=== PATIENT | female | born 1985 ===

== ENCOUNTER 2017-03-06 14:24 | Emergency (ER) | payer BC ==
[2017-03-06 14:48] VITALS: BP 125/73; PULSE 72; RESP 16; TEMP 98.7
[2017-03-06] MEDS ORDERED: TDAP Vaccine 0.5 mL Syr IM ONE (15:09)
--- NOTE | 2017-03-06 15:10 | ED PDOC ---
Arrival/HPI - General Chief Complaint: Abnormal Skin Integrity Time Seen by Provider: 03/06/17 15:09 Historian: Patient - History of Present Illness Narrative History of Present Illness (Text): 03/06/17 15:10 This 31 yo female presents to this ED c/o left middle finger laceration x COLLABORATIVE PHYSICIAN. Patient stated she cut finger with broken glass at her sink. Finger has FROM. Last tetanus is UKN. Patient is right hand dominant. Denies other complain. Time/Duration: Prior to Arrival Context: Home Past Medical History - Provider Review Nursing Documentation Reviewed: Yes - Psychiatric Hx Psychophysiologic Disorder: No Hx Substance Use: No - Surgical History Other/Comment: GASTRIC SLEEVE Family/Social History - Physician Review Nursing Documentation Reviewed: Yes Family/Social History: No Known Family HX Smoking Status: Never Smoked Hx Alcohol Use: No Hx Substance Use: No Allergies/Home Meds Allergies/Adverse Reactions: Allergies No Known Allergies Allergy (Verified 03/06/17 14:42) Home Medications: Home Meds Medication Instructions Recorded Confirmed Ferrous Sulfate [Ferosul] 1 tab PO DAILY 03/06/17 03/06/17 Review of Systems - Review of Systems Constitutional: Normal. absent: Fatigue, Weight Change, Fevers Eyes: Normal ENT: Normal Respiratory: Normal Cardiovascular: Normal Gastrointestinal: Normal Genitourinary Female: Normal Musculoskeletal: Other (Finger laceration) Skin: Normal Neurological: Normal Endocrine: Normal Hemo/Lymphatic: Normal Psychiatric: Normal Physical Exam Vital Signs Temp Pulse Resp BP Pulse Ox 03/06/17 16:31 16 98 03/06/17 14:47 98.7 F 72 16 125/73 97 Temperature: Afebrile Blood Pressure: Normal Pulse: Regular Respiratory Rate: Normal Appearance: Positive for: Well-Appearing, Non-Toxic, Comfortable Pain Distress: None Mental Status: Positive for: Alert and Oriented X 3 - Systems Exam Head: Present: Atraumatic, Normocephalic Pupils: Present: PERRL Extroacular Muscles: Present: EOMI Conjunctiva: Present: Normal Mouth: Present: Moist Mucous Membranes Upper Extremity: Present: Normal ROM, NORMAL PULSES, Capillary Refill < 2s, Other ((+) left mid 3rdfinger laceration No deep structure visualized. Finger has FROM). No: Cyanosis, Edema Lower Extremity: Present: Normal Inspection. No: Edema, CALF TENDERNESS Medical Decision Making ED Course and Treatment: 03/06/17 16:12 Re-evaluation. Patient feels better. Discussed results and plan with patient who expresses understanding. All questions answered and there is agreement with the plan to discharge home with instructions. Patient stable for discharge. Return if symptoms persist or worsen Re-evaluation Time: 16:12 Reassessment Condition: Re-examined, Improved - Medication Orders Current Medication Orders: Discontinued Medications Tetanus/Reduced Diphtheria/Acell Pertussis (Boostrix Vaccine Inj) 0.5 ml IM .ONCE ONE Stop: 03/06/17 15:10 Last Admin: 03/06/17 15:59 Dose: 0.5 ml - Procedure PROCEDURE NOTE (Text): 03/06/17 16:13 PROCEDURE: LACERATION REPAIR Performed by the emergency provider Location: left middle finger Length: 2.7 cm Description: clean wound edges , no foreign bodies Distal CMS: Normal. No deficits. Neurovascularly intact. Anesthesia: Lidocaine 1% with Epi, approx. 1 cc Preparation: The wound was cleaned with NS and Betadyne. The area was prepped and draped in the usual sterile fashion. Exploration: The wound was explored and no foreign bodies were found. Procedure: The wound was closed with Chromic Gut, 5-0. interrupted. There was good approximation. In total, 3 sutures were used. Post-Procedure: Good closure and hemostasis. The patient tolerated the procedure well and there were no complications. CSM remains intact. Post procedure dressing applied Disposition/Present on Arrival - Present on Arrival Any Indicators Present on Arrival: No History of DVT/PE: No History of Uncontrolled Diabetes: No Urinary Catheter: No History of Decub. Ulcer: No History Surgical Site Infection Following: None - Disposition Have Diagnosis and Disposition been Completed?: Yes Diagnosis: Finger laceration Disposition: HOME/ ROUTINE Disposition Time: 16:15 Patient Plan: Discharge Condition: IMPROVED Discharge Instructions (ExitCare): Finger Laceration (ED) Additional Instructions: Call private doctor for follow up visit in 1-2 days. Take medication as instructed. Return to emergency if wound becomes painful, redness, drainage. Sutures are absorbable , so they do not need to be removed. They will fall off by themselves Prescriptions: Cephalexin [cephalexin] 500 mg PO TID #15 cap Referrals: PCP,NO [Primary Care Provider] - Follow up with primary Brad MARQUEZ,Paulino Nettles MD [Medical Doctor] - Follow up with primary Forms: WORK NOTE
[2017-03-06 16:32] VITALS: O2SAT 98
== END 2017-03-06 16:32 | disposition home or self-care (01) ==
LOC: ED 14:24
DX: S61.213A Laceration without foreign body of left middle finger without damage to nail, initial encounter (principal); W25.XXXA Contact with sharp glass, initial encounter; Y92.009 Unspecified place in unspecified non-institutional (private) residence as the place of occurrence of the external cause

== ENCOUNTER 2018-06-17 08:39 | Inpatient (IN) | payer BC ==
[2018-06-17] MEDS ORDERED: Sodium Chloride 0.9% 1,000 ML IV STA (09:08)
--- NOTE | 2018-06-17 09:08 | ED PDOC ---
Arrival/HPI - General Chief Complaint: Abdominal Pain Time Seen by Provider: 06/17/18 08:40 Historian: Patient - History of Present Illness Narrative History of Present Illness (Text): 06/17/18 09:08 33 year old female, whose past medical history includes sleeve gastrectomy 2013 , presents to the emergency department complaining of sudden onset of right lower abdominal pain that began yesterday morning. Patient reports she had breakfast yesterday morning with one episode of diarrhea when the symptoms began. Pain has been constant. She states the pain has progressively worsen throughout the night and is unable to eat due to the pain. Patient's last menstrual period was in the end of April. Patient reports nausea and vomiting, but denies any fever, chills, chest pain, shortness of breath, diarrhea currently, urinary symptoms, hematochezia, back pain, neck pain, headache, dizziness, or any other complaints. 06/17/18 15:09 Symptom Onset: Sudden Symptom Course: Worsening Activities at Onset: Light Context: Home Past Medical History - Provider Review Nursing Documentation Reviewed: Yes - Psychiatric Hx Psychophysiologic Disorder: No Hx Substance Use: No - Surgical History Other/Comment: GASTRIC SLEEVE Family/Social History - Physician Review Nursing Documentation Reviewed: Yes Family/Social History: No Known Family HX Smoking Status: Never Smoked Hx Alcohol Use: No Hx Substance Use: No Allergies/Home Meds Allergies/Adverse Reactions: Allergies No Known Allergies Allergy (Verified 06/17/18 08:55) Home Medications: Home Meds Medication Instructions Recorded Confirmed No Known Home Med 06/17/18 06/17/18 Review of Systems - Review of Systems Constitutional: absent: Fatigue, Fevers, Other (Chills) Eyes: absent: Vision Changes ENT: absent: Hearing Changes Respiratory: absent: SOB Cardiovascular: absent: Chest Pain, Edema Gastrointestinal: Abdominal Pain, Nausea, Vomiting, Appetite Changes. absent: Diarrhea, Hematochezia, Hematemesis Genitourinary Female: absent: Dysuria, Frequency, Hematuria, Urine Output Changes Musculoskeletal: absent: Back Pain, Neck Pain Neurological: absent: Headache, Dizziness Endocrine: absent: Polyuria Hemo/Lymphatic: absent: Easy Bleeding Physical Exam - Physical Exam Narrative Physical Exam (Text): Head: Atraumatic. Normocephalic. Eyes: PERRL. EOMI. Conjunctivae are not pale. Sclera anicteric. ENT: Mucous membranes are moist and intact. Oropharynx is clear and symmetric. Neck: Supple. Full ROM. No JVD. No lymphadenopathy. Cardiovascular: Regular rate. Regular rhythm. No murmurs, rubs, or gallops. Distal pulses are 2+ and symmetric. Pulmonary/Chest: No evidence of respiratory distress. Clear to auscultation bilaterally. No wheezing, rales or rhonchi. Abdominal: Soft and non-distended. Focal tenderness to right lower quadrant with rebound and guarding. Mild pain to right upper quadrant but no Phillips's sign. Back: No CVA tenderness. Extremities: No edema. No cyanosis. No clubbing. Full range of motion in all extremities. No calf tenderness. Skin: Skin is warm and dry. No petechiae. No purpura. No jaundice. Neurological: Alert, awake, and oriented. Motor and sensory exam intact. Psychiatric: Good eye contact. Normal interaction, affect, and behavior. Vital Signs Reviewed: Yes Vital Signs Temp Pulse Resp BP Pulse Ox 06/17/18 11:08 72 18 124/77 98 06/17/18 10:18 71 18 123/68 98 06/17/18 08:53 98.8 F 86 18 125/73 97 Temperature: Afebrile Blood Pressure: Normal Pulse: Regular Respiratory Rate: Normal Appearance: Positive for: Well-Appearing, Non-Toxic, Uncomfortable Pain Distress: Moderate Mental Status: Positive for: Alert and Oriented X 3 Medical Decision Making ED Course and Treatment: 06/17/18 09:08 Impression: 33 year old female presents complaining of sudden onset of right lower abdominal pain associated with nausea and vomiting that began yesterday morning after having breakfast and one episode of diarrhea Differential Diagnosis included but are not limited to: Appendicitis VS Cholecystitis VS Bowel Obstruction VS Ovarian Cyst Plan: -- CT Abd & Pelvis IV Contrast -- Labs -- Pepcid, IV Fluids -- POC Urine Test -- HCG, Qualit Urine, Urinalysis -- Reassess and disposition Progress Notes: Patient with constant worsening pain which on exam is localized to right lower quadrant. Afebile. Vital signs stable on initial exams. Denies chest pain or sob. Leukocytosis noted. CT ordered to evaluate for possible appendicitis. PROCEDURE: CT Abdomen and Pelvis with contrast Dictator : Sterling Pandey MD Report Date : 06/17/2018 10:14:37 IMPRESSION: The appendix is dilated to a diameter 14 mm. There is thickening and enhancement of the wall of the appendix and minimal surrounding inflammatory changes. Findings are consistent with acute appendicitis Patient informed of CT findings. On re-exam she has persistent, unchanged lower abdominal pain. Surgery convention worker consulted, Dr. Shaw, who accepts admission to his service. Surgery team consulted. Patient will be admitted for acute appendicitis. 06/17/18 15:12 - Lab Interpretations Lab Results: 06/17/18 09:00 06/17/18 09:00 Lab Results 06/17/18 09:00: Sodium 139, Potassium 4.3, Chloride 102, Carbon Dioxide 27, Anion Gap 15, BUN 12, Creatinine 0.6 L, Est GFR ( Amer) > 60, Est GFR ( Non-Af Amer) > 60, Random Glucose 123 H, Calcium 9.3, Total Bilirubin 0.9, AST 23, ALT 25, Alkaline Phosphatase 62, Total Protein 8.2, Albumin 4.4, Globulin 3.8, Albumin/Globulin Ratio 1.2, Amylase 77, Lipase 34 06/17/18 09:00: Urine Color Yellow, Urine Appearance Clear, Urine pH 6.0, Ur Specific [place] 1.025, Urine Protein Trace H, Urine Glucose (UA) Negative, Urine Ketones Negative, Urine Blood Negative, Urine Nitrate Negative, Urine Bilirubin Negative, Urine Urobilinogen 2.0 H, Ur Leukocyte Esterase Negative, Urine RBC 0 - 2, Urine WBC 1 - 3, Ur Epithelial Cells 4 - 5, Urine Bacteria Many , Urine Other Uyeast, Urine HCG, Qual Negative 06/17/18 09:00: WBC 14.4 H, RBC 4.69, Hgb 12.7, Hct 38.5, MCV 82.1, MCH 27.1, MCHC 33.0, RDW 13.2, Plt Count 269, MPV 10.6, Gran % 81.0 H, Lymph % (Auto) 9.5 L, [place] % (Auto) 9.3 H, Eos % (Auto) 0.1 L, Baso % (Auto) 0.1, Gran # 11.63 H, Lymph # (Auto) 1.4, [place] # (Auto) 1.3 H, Eos # (Auto) 0.0, Baso # (Auto) 0.02 I have reviewed the lab results: Yes - RAD Interpretation Radiology Orders: 06/17/18 09:08 ABD & PELVIS IV CONTRAST ONLY [CT] Stat - Medication Orders Current Medication Orders: Hydromorphone HCl (Dilaudid) 0.5 mg IVP Q6H PRN PRN Reason: Pain, moderate (4-7) Discontinued Medications Famotidine (Pepcid) 20 mg IVP STAT STA Stop: 06/17/18 09:09 Last Admin: 06/17/18 09:22 Dose: 20 mg IVP Administration Document 06/17/18 09:22 EAR (Rec: 06/17/18 09:22 EAR [id number]) Charges for Administration # of IVP Administrations 1 Sodium Chloride (Sodium Chloride 0.9%) 1,000 mls @ 1,000 mls/hr IV .Q1H STA Stop: 06/17/18 10:07 Last Admin: 06/17/18 09:23 Dose: 1,000 mls/hr eMAR Start Stop Document 06/17/18 09:23 EAR (Rec: 06/17/18 09:23 EAR [id number]) Intravenous Solution Start Date 06/17/18 Start Time 09:23 End Date 06/17/18 End time 10:25 Total Infusion Time 62 Ceftriaxone Sodium (Rocephin 1 Gram Ivpb) 1 gm in 100 mls @ 200 mls/hr IVPB ONCE STA PRN Reason: Protocol Stop: 06/17/18 10:51 Last Admin: 06/17/18 10:31 Dose: 200 mls/hr eMAR Start Stop Document 06/17/18 10:31 EAR (Rec: 06/17/18 10:31 EAR [id number]) Intravenous Solution Start Date 06/17/18 Start Time 10:31 End Date 06/17/18 End time 11:05 Total Infusion Time 34 Metronidazole (Flagyl) 500 mg in 100 mls @ 100 mls/hr IV ONCE ONE PRN Reason: Protocol Stop: 06/17/18 11:22 Last Admin: 06/17/18 10:59 Dose: 100 mls/hr eMAR Start Stop Document 06/17/18 10:59 EAR (Rec: 06/17/18 11:00 EAR [id number]) Intravenous Solution Start Date 06/17/18 Start Time 11:00 End Date 06/17/18 End time 12:00 Total Infusion Time 60 Morphine Sulfate (Morphine) 2 mg IVP STAT STA Stop: 06/17/18 10:33 Last Admin: 06/17/18 10:59 Dose: 2 mg MAR Pain Assessment Document 06/17/18 10:59 EAR (Rec: 06/17/18 10:59 EAR [id number]) Pain Reassessment Is this a pain reassessment? No Sleep Is patient sleeping during reassessment? No Presence of Pain Presence of Pain Yes Pain Scale Used Pain Scale Used Numeric Location Left, Right or Bilateral Right Pain Location Body Site Groin IVP Administration Document 06/17/18 10:59 EAR (Rec: 06/17/18 10:59 EAR [id number]) Charges for Administration # of IVP Administrations 1 Pneumococcal Polyvalent Vaccine (Pneumovax 23 Vaccine) 0.5 ml IM .ONCE ONE Stop: 06/17/18 12:17 - Scribe Statement The provider has reviewed the documentation as recorded by the Sasha Rose Provider Scribe Attestation: All medical record entries made by the Sasha were at my direction and personally dictated by me. I have reviewed the chart and agree that the record accurately reflects my personal performance of the history, physical exam, medical decision making, and the department course for this patient. I have also personally directed, reviewed, and agree with the discharge instructions and disposition. Disposition/Present on Arrival - Present on Arrival Any Indicators Present on Arrival: No History of DVT/PE: No History of Uncontrolled Diabetes: No Urinary Catheter: No History of Decub. Ulcer: No History Surgical Site Infection Following: None - Disposition Have Diagnosis and Disposition been Completed?: Yes Diagnosis: Appendicitis Disposition: HOSPITALIZED Disposition Time: 11:00 Patient Plan: Admission Condition: SERIOUS
[2018-06-17 09:19] LABS: BASO # 0.02 K/mm3 (0.0-2.0); BASO % 0.1 % (0.0-3.0); EOS % 0.1 % (1.5-5.0); GRAN # 11.63 (1.4-6.5); HEMOGLOBIN 12.7 g/dL (12.0-16.0); LYMPH # 1.4 (1.2-3.4); LYMPH % 9.5 % (22.0-35.0); MEAN CELL VOLUME 82.1 fl (80.0-105.0); MEAN CORPUSCULAR HEMOGLOBIN 27.1 pg (25.0-35.0); MEAN PLATELET VOLUME 10.6 fl (7.0-11.0); MONO # 1.3 (0.1-0.6); MONO % 9.3 % (1.0-6.0); RBC 4.69 10^6/uL (3.5-6.1); RED CELL DISTRIBUTION WIDTH 13.2 % (11.5-14.5); WHITE BLOOD COUNT 14.4 10^3/ul (4.5-11.0)
[2018-06-17 09:20] LABS: URINE BILIRUBIN NEGATIVE (NEGATIVE); URINE BLOOD NEGATIVE (NEGATIVE); URINE GLUCOSE (UA) NEGATIVE (NEGATIVE); URINE LEUKOCYTE ESTERASE NEGATIVE Leu/uL (NEGATIVE); URINE PROTEIN TRACE mg/dL (<30 mg/dL)
[2018-06-17 09:22] LABS: URINE COLOR YELLOW (YELLOW)
[2018-06-17 09:23] LABS: URINE APPEARANCE CLEAR (CLEAR)
[2018-06-17 09:28] LABS: HCG,QUALITATIVE URINE NEGATIVE (NEGATIVE)
[2018-06-17 09:30] LABS: ALB/GLOB RATIO 1.2 (1.1-1.8); ALBUMIN 4.4 g/dL (3.0-4.8); ALT/SGPT 25 U/L (7-56); AMYLASE 77 U/L (35-125); AST/SGOT 23 U/L (14-36); BLOOD UREA NITROGEN 12 mg/dL (7-21); CALCIUM 9.3 mg/dL (8.4-10.5); GFR NON-AFRICAN AMERICAN > 60; LIPASE 34 U/L (23-300)
[2018-06-17 09:31] LABS: URINE BACTERIA MANY (NEG); URINE RBC 0 - 2 /hpf (0-2)
[2018-06-17] MEDS ORDERED: Iohexol 350 MG/100 ML VIAL ONE (09:44)
--- NOTE | 2018-06-17 10:16 | CT ---
Date of service: 06/17/2018 PROCEDURE: CT Abdomen and Pelvis with contrast HISTORY: rlq abdominal pain, r/o appendicitis COMPARISON: None. TECHNIQUE: Contrast dose: 100 cc of Omni 350 Radiation dose: Total exam DLP = 1033 mGy-cm. This CT exam was performed using one or more of the following dose reduction techniques: Automated exposure control, adjustment of the mA and/or kV according to patient size, and/or use of iterative reconstruction technique. FINDINGS: LOWER THORAX: Unremarkable. LIVER: Unremarkable. No gross lesion or ductal dilatation. GALLBLADDER AND BILE DUCTS: Unremarkable. PANCREAS: Unremarkable. No gross lesion or ductal dilatation. SPLEEN: Unremarkable. ADRENALS: Unremarkable. No mass. KIDNEYS AND URETERS: Unremarkable. No hydronephrosis. No solid mass. VASCULATURE: Unremarkable. No aortic aneurysm. BOWEL: Unremarkable. No obstruction. No gross mural thickening. APPENDIX: The appendix is dilated to a diameter 14 mm. There is thickening and enhancement of the wall of the appendix and minimal surrounding inflammatory changes. Findings are consistent with acute appendicitis PERITONEUM: Unremarkable. No free fluid. No free air. LYMPH NODES: Unremarkable. No enlarged lymph nodes. BLADDER: Unremarkable. REPRODUCTIVE: Unremarkable. BONES: No acute fracture. OTHER FINDINGS: Findings were discussed with Dr. Martines at 10:10 a.m. IMPRESSION: The appendix is dilated to a diameter 14 mm. There is thickening and enhancement of the wall of the appendix and minimal surrounding inflammatory changes. Findings are consistent with acute appendicitis
[2018-06-17] MEDS ORDERED: cefTRIAXone 1 gm 1 GM/100 ML BAG IVPB STA (10:22)
[2018-06-17] MEDS ORDERED: metroNIDAZOLE IV 500 mg/100 ml 500 MG/100 ML BAG IV ONE (10:23)
[2018-06-17] MEDS ORDERED: Morphine 2 mg/ml ISec IVP STA (10:32)
--- NOTE | 2018-06-17 11:33 | CP.PCM.HP ---
<Adryan Stokes - Last Filed: 06/17/18 11:48> History of Present Illness - History of Present Illness History of Present Illness: H&P for Dr. Shaw 33 yo F presents to the ED with 1 day hx of abdominal pain. The pt states that she noticed mild, generalized abdominal pain after breakfast yesterday morning. The pain steadily worsened throughout the day, become more sharp and localized to her RLQ. She took pepto bismol and ibuprofen yesterday for pain without relief. She was unable to sleep comfortably on her stomach. Pain was accompanied by fever (101F, oral), chills, vomiting x1 last night, and loss of appetite. She has not eaten since breakfast yesterday. She has never experienced anything like this before. She had a normal bowel movement yesterday morning. She denies any headache, lightheadedness, weakness, vision changes, cough, dyspnea, chest pain, sore throat, difficulty swallowing, diarrhea, constipation, vaginal bleeding, dysuria, urinary frequency. Irregular periods 2/2 IUD contraception use--last breakthrough bleed occurred approx 1 mo ago. PMHx: obesity PSHx: laparoscopic sleeve gastrectomy 2012 (Dr. Melendez) Meds: Mirena IUD for contraception, occasional ibuprofen All: NKDA FHx: grandmother had a stroke, no family hx of colon cancer or GI disease Social: No tobacco, no alcohol. 3 yo at home, lives with . Present on Admission - Present on Admission Any Indicators Present on Admission: No Review of Systems - Constitutional Constitutional: Anorexia, Chills, Fever. absent: Headache - EENT Eyes: absent: Blind Spots, Blurred Vision, Change in Vision Ears: absent: Tinnitus, Disequilibrium Nose/Mouth/Throat: absent: Nasal Congestion, Nasal Discharge, Post Nasal Drip - Cardiovascular Cardiovascular: absent: Chest Pain, Chest Pain at Rest, Chest Pain with Activity , Dyspnea, Dyspnea on Exertion, Lightheadedness - Respiratory Respiratory: absent: Cough, Dyspnea - Gastrointestinal Gastrointestinal: Abdominal Pain, Nausea, Vomiting. absent: Change in Bowel Habits, Coffee Ground Emesis, Constipation, Diarrhea - Genitourinary Genitourinary: absent: Dysuria, Hematuria, Urinary Frequency - Reproductive: Female Reproductive:Female: Cycle Variable. absent: Vaginal Discharge, Vaginal Pruritis - Menstruation Menstruation: Cycle Variable - Musculoskeletal Musculoskeletal: absent: Arthralgias, Myalgias - Integumentary Integumentary: absent: Bleeding Lesions, Lesions, Rash - Neurological Neurological: absent: Dizziness, Headaches - Psychiatric Psychiatric: absent: Depression, Suicidal Ideation Past Patient History - Past Social History Smoking Status: Never Smoked - PSYCHIATRIC Hx Psychophysiologic Disorder: No Hx Substance Use: No - SURGICAL HISTORY Other/Comment: GASTRIC SLEEVE Meds Home Medications: Home Medication List Medication Instructions Recorded Confirmed Type levoFLOXacin [Levaquin] 500 mg PO DAILY 5 Days tab 06/18/18 Rx Allergies/Adverse Reactions: Allergies Allergy/AdvReac Type Severity Reaction Status Date / Time No Known Allergies Allergy Verified 06/17/18 08:55 Physical Exam - Constitutional Appears: Well, Non-toxic, No Acute Distress - Head Exam Head Exam: ATRAUMATIC, NORMAL INSPECTION, NORMOCEPHALIC - Eye Exam Eye Exam: EOMI, Normal appearance. absent: Conjunctival injection, Scleral icterus - ENT Exam ENT Exam: Mucous Membranes Moist, Normal Exam - Neck Exam Neck exam: Positive for: Normal Inspection - Respiratory Exam Respiratory Exam: Clear to Auscultation Bilateral, NORMAL BREATHING PATTERN. absent: Accessory Muscle Use, Rhonchi, Wheezes, Respiratory Distress - Cardiovascular Exam Cardiovascular Exam: REGULAR RHYTHM, RRR, +S1, +S2. absent: Systolic Murmur - GI/Abdominal Exam GI & Abdominal Exam: Normal Bowel Sounds, Rebound, Soft. absent: Distended, Firm, Tenderness Additional comments: Two small, linear, L-sided epigastric scars from prior laparoscopic gastrectomy. Obese abdomen. Mcburney's point tenderness with voluntary guarding. Rovsing sign positive, positive psoas sign. - Rectal Exam Rectal Exam: Deferred - Extremities Exam Extremities exam: Positive for: normal inspection. Negative for: joint swelling - Neurological Exam Neurological exam: Alert, Oriented x3 - Psychiatric Exam Psychiatric exam: Normal Affect, Normal Mood - Skin Skin Exam: Dry, Intact, Normal Color, Warm Results - Vital Signs Recent Vital Signs: Last Vital Signs Temp 98 F 06/17/18 11:17 Pulse 71 06/17/18 11:17 Resp 18 06/17/18 11:17 BP 124/69 06/17/18 11:17 Pulse Ox 98 06/17/18 11:17 - Labs Result Diagrams: 06/17/18 09:00 06/17/18 09:00 Assessment & Plan - Assessment and Plan (Free Text) Assessment: 33F presents for 1 day RLQ 2/2 acute appendicitis. Plan: Physical exam and radiographic findings consistent with acute appendicitis. NPO Pain Control IVF OR this afternoon for laparoscopic appendectomy., Further recs per Dr. Colin Stokes PGY3 <Brent Shaw - Last Filed: 06/20/18 16:44> Physical Exam - GI/Abdominal Exam GI & Abdominal Exam: Hernia Additional comments: Small incarcerated periumbilical ventral hernia Results - Vital Signs Recent Vital Signs: Last Vital Signs Temp 98.4 F 06/18/18 07:29 Pulse 72 06/18/18 07:29 Resp 20 06/18/18 07:29 BP 102/56 L 06/18/18 07:29 Pulse Ox 97 06/18/18 07:29 - Labs Result Diagrams: 06/18/18 06:45 06/18/18 06:45 Assessment & Plan (1) Incarcerated ventral hernia Status: Acute - Assessment and Plan (Free Text) Plan: Laparoscopic appendectomy and repair of incarcerated ventral hernia
[2018-06-17] MEDS ORDERED: HYDROmorphone 0.5 mg/0.5 ml ISec IVP PRN ×2 (11:44→15:35)
[2018-06-17 12:16] VITALS: BMI 42.4
[2018-06-17] MEDS ORDERED: Pneumococcal 23-Valent Vaccine IM ONE (12:16)
[2018-06-17] MEDS ORDERED: Bupivacaine 0.5% Inj(30mL) ONE ×2 (12:50→14:42)
[2018-06-17] MEDS ORDERED: Propofol 10 mg/ml Inj (20 ML) ONE (13:00)
[2018-06-17] MEDS ORDERED: Rocuronium 10 mg/ml (5 ml) ONE (13:01)
[2018-06-17] MEDS ORDERED: Succinylcholine 200 mg/10 ml Inj IV ONE (13:01)
[2018-06-17] MEDS ORDERED: Midazolam 2 MG/2 ML VIAL ONE (13:02)
[2018-06-17] MEDS ORDERED: Bupivacaine 0.5% Inj(30mL) IJ ONE ×2 (14:12)
[2018-06-17] MEDS ORDERED: Neostigmine Methylsulfate 3mg/3ml Syringe IV ONE (15:04)
--- NOTE | 2018-06-17 15:35 | PCM.SURG1 ---
<Marla Rose - Last Filed: 06/17/18 15:32> Surgeon's Initial Post Op Note - Surgeon's Notes Surgeon: Dr. Shaw Revenue Analyst: Dr. Stokes PGY-3, Dr. Rose PGY-3 Type of Anesthesia: General Endo Anesthesia Administered By: Dr. White Pre-Operative Diagnosis: Acute Appendicitis Operative Findings: See operative report Post-Operative Diagnosis: Same Operation Performed: Laparoscopic Appendectomy, Lysis of adhesions, TAP Block Specimen/Specimens Removed: Appendix Estimated Blood Loss: EBL {In ML}: 10 Blood Products Given: N/A Drains Used: No Drains Post-Op Condition: Good Date of Surgery/Procedure: 06/17/18 Time of Surgery/Procedure: 15:34 <Brent Shaw - Last Filed: 06/20/18 16:39> Surgeon's Initial Post Op Note - Surgeon's Notes Pre-Operative Diagnosis: Acute appendicitis/incarcerated ventral hernia Post-Operative Diagnosis: Acute appendicitis/incarcerated ventral hernia/ intraabdominal adhesions Operation Performed: Laroscopic appendectomy/laparoscopic enterolysis/repair of incarcerated ventral hernia/bilateral sonoguided transversus abdominis plane block analgesia
[2018-06-17] MEDS: levoFLOXacin 500 MG TAB PO SCH (19:26)
[2018-06-17] MEDS: Oxycodone/Acetaminophen 5/325 mg Tab PO PRN (20:14)
[2018-06-17 22:26] VITALS: RESP 20
[2018-06-18] MEDS: Oxycodone/Acetaminophen 5/325 mg Tab PO PRN (02:26)
[2018-06-18 07:10] LABS: HEMOGLOBIN 11.1 g/dL (12.0-16.0); MEAN CELL VOLUME 83.1 fl (80.0-105.0); MEAN CORPUSCULAR HEMOGLOBIN 26.8 pg (25.0-35.0); MEAN CORPUSCULAR HGB CONC 32.3 g/dl (31.0-37.0); MEAN PLATELET VOLUME 10.4 fl (7.0-11.0); RBC 4.14 10^6/uL (3.5-6.1); RED CELL DISTRIBUTION WIDTH 13.7 % (11.5-14.5); WHITE BLOOD COUNT 8.5 10^3/ul (4.5-11.0)
[2018-06-18 07:18] LABS: BLOOD UREA NITROGEN 13 mg/dL (7-21); CALCIUM 8.4 mg/dL (8.4-10.5); GFR NON-AFRICAN AMERICAN > 60
[2018-06-18 07:30] VITALS: BP 102/56; PULSE 72; TEMP 98.4; O2SAT 97
--- NOTE | 2018-06-18 07:59 | CP.PCM.DIS ---
<Marla Rose - Last Filed: 06/18/18 07:53> Provider - Provider Date of Admission: 06/17/18 10:31 Attending physician: Brent Shaw MD Time Spent in preparation of Discharge (in minutes): 5 Hospital Course - Lab Results Lab Results: Most Recent Lab Values WBC 8.5 10^3/ul (4.5-11.0) D 06/18/18 06:45 RBC 4.14 10^6/uL (3.5-6.1) 06/18/18 06:45 Hgb 11.1 g/dL (12.0-16.0) L 06/18/18 06:45 Hct 34.4 % (36.0-48.0) L 06/18/18 06:45 MCV 83.1 fl (80.0-105.0) 06/18/18 06:45 MCH 26.8 pg (25.0-35.0) 06/18/18 06:45 MCHC 32.3 g/dl (31.0-37.0) 06/18/18 06:45 RDW 13.7 % (11.5-14.5) 06/18/18 06:45 Plt Count 211 10^3/uL (120.0-450.0) 06/18/18 06:45 MPV 10.4 fl (7.0-11.0) 06/18/18 06:45 Gran % 81.0 % (50.0-68.0) H 06/17/18 09:00 Lymph % (Auto) 9.5 % (22.0-35.0) L 06/17/18 09:00 [place] % (Auto) 9.3 % (1.0-6.0) H 06/17/18 09:00 Eos % (Auto) 0.1 % (1.5-5.0) L 06/17/18 09:00 Baso % (Auto) 0.1 % (0.0-3.0) 06/17/18 09:00 Gran # 11.63 (1.4-6.5) H 06/17/18 09:00 Lymph # (Auto) 1.4 (1.2-3.4) 06/17/18 09:00 [place] # (Auto) 1.3 (0.1-0.6) H 06/17/18 09:00 Eos # (Auto) 0.0 (0.0-0.7) 06/17/18 09:00 Baso # (Auto) 0.02 K/mm3 (0.0-2.0) 06/17/18 09:00 Sodium 140 mmol/L (132-148) 06/18/18 06:45 Potassium 4.0 mmol/L (3.6-5.0) 06/18/18 06:45 Chloride 105 mmol/L (98-107) 06/18/18 06:45 Carbon Dioxide 27 mmol/L (21-33) 06/18/18 06:45 Anion Gap 13 (10-20) 06/18/18 06:45 BUN 13 mg/dL (7-21) 06/18/18 06:45 Creatinine 0.6 mg/dl (0.7-1.2) L 06/18/18 06:45 Est GFR ( Amer) > 60 06/18/18 06:45 Est GFR (Non-Af Amer) > 60 06/18/18 06:45 Random Glucose 114 mg/dL (70-110) H 06/18/18 06:45 Calcium 8.4 mg/dL (8.4-10.5) 06/18/18 06:45 Total Bilirubin 0.9 mg/dL (0.2-1.3) 06/17/18 09:00 AST 23 U/L (14-36) 06/17/18 09:00 ALT 25 U/L (7-56) 06/17/18 09:00 Alkaline Phosphatase 62 U/L (38-126) 06/17/18 09:00 Total Protein 8.2 g/dL (5.8-8.3) 06/17/18 09:00 Albumin 4.4 g/dL (3.0-4.8) 06/17/18 09:00 Globulin 3.8 gm/dL 06/17/18 09:00 Albumin/Globulin Ratio 1.2 (1.1-1.8) 06/17/18 09:00 Amylase 77 U/L (35-125) 06/17/18 09:00 Lipase 34 U/L (23-300) 06/17/18 09:00 Urine Color Yellow (YELLOW) 06/17/18 09:00 Urine Appearance Clear (CLEAR) 06/17/18 09:00 Urine pH 6.0 (4.7-8.0) 06/17/18 09:00 Ur Specific [place] 1.025 (1.005-1.035) 06/17/18 09:00 Urine Protein Trace mg/dL (<30 mg/dL) H 06/17/18 09:00 Urine Glucose (UA) Negative mg/dL (NEGATIVE) 06/17/18 09:00 Urine Ketones Negative mg/dL (NEGATIVE) 06/17/18 09:00 Urine Blood Negative (NEGATIVE) 06/17/18 09:00 Urine Nitrate Negative (NEGATIVE) 06/17/18 09:00 Urine Bilirubin Negative (NEGATIVE) 06/17/18 09:00 Urine Urobilinogen 2.0 E.U./dL (<1 E.U./dL) H 06/17/18 09:00 Ur Leukocyte Esterase Negative Emily/uL (NEGATIVE) 06/17/18 09:00 Urine RBC 0 - 2 /hpf (0-2) 06/17/18 09:00 Urine WBC 1 - 3 /hpf (0-6) 06/17/18 09:00 Ur Epithelial Cells 4 - 5 /hpf (0-5) 06/17/18 09:00 Urine Bacteria Many (NEG) 06/17/18 09:00 Urine Other Uyeast 06/17/18 09:00 Urine HCG, Qual Negative (NEGATIVE) 06/17/18 09:00 - Hospital Course Hospital Course: Pt is a 33F with PMHx significant for obesity who presented to [facility] [place] [facility] on 06/17/18 for abdominal pain in the RLQ with accompanied N/V & fevers. In the ER, pt had a CT abdomen/pelvis which showed acute appendicitis. Pt was taken to the OR for lap appendectomy with TAP block and tolerated the procedure well. She is feeling well this morning, states pain is well controlled and tolerating her diet. Pt will be discharged home with f/u visit in the office. Discharge Exam - Head Exam Head Exam: ATRAUMATIC, NORMOCEPHALIC - Eye Exam Eye Exam: Normal appearance - ENT Exam ENT Exam: Mucous Membranes Moist - Respiratory Exam Respiratory Exam: NORMAL BREATHING PATTERN - Cardiovascular Exam Cardiovascular Exam: RRR - GI/Abdominal Exam GI & Abdominal Exam: Soft, Tenderness (around incisions ). absent: Guarding, Rebound - Neurological Exam Neurological exam: Alert, Oriented x3 - Skin Skin Exam: Dry, Warm Discharge Plan - Discharge Medications Prescriptions: levoFLOXacin [Levaquin] 500 mg PO DAILY 5 Days tab - Follow Up Plan Condition: SERIOUS Disposition: HOME/ ROUTINE Instructions: Appendicitis in Adults, Appendectomy, Laparoscopic Surgery, Open Herniorrhaphy (DC), Laparoscopic Herniorrhaphy (DC), Inguinal Hernia (DC) Additional Instructions: Ok to shower, dermabond on incisions will come off on it's own. Follow up with Dr. Shaw in 1-2 weeks. No heavy lifting > 15lbs for 3-4 weeks. Ok to return to work in a few days. Resume prior diet. Take over the counter extra strength Ibuprofen or Tylenol for pain as needed. Referrals: Brent Shaw MD [Staff Provider] - <Brent Shaw - Last Filed: 06/20/18 16:52> Provider - Provider Date of Admission: 06/17/18 10:31 Attending physician: Brent Shaw MD Diagnosis - Discharge Diagnosis (1) Incarcerated ventral hernia Status: Acute Hospital Course - Lab Results Lab Results: Micro Results 06/17/18 11:15 Blood Blood Culture - Preliminary NO GROWTH AFTER 3 DAYS 06/17/18 11:15 Blood Blood Culture - Preliminary NO GROWTH AFTER 3 DAYS Most Recent Lab Values WBC 8.5 10^3/ul (4.5-11.0) D 06/18/18 06:45 RBC 4.14 10^6/uL (3.5-6.1) 06/18/18 06:45 Hgb 11.1 g/dL (12.0-16.0) L 06/18/18 06:45 Hct 34.4 % (36.0-48.0) L 06/18/18 06:45 MCV 83.1 fl (80.0-105.0) 06/18/18 06:45 MCH 26.8 pg (25.0-35.0) 06/18/18 06:45 MCHC 32.3 g/dl (31.0-37.0) 06/18/18 06:45 RDW 13.7 % (11.5-14.5) 06/18/18 06:45 Plt Count 211 10^3/uL (120.0-450.0) 06/18/18 06:45 MPV 10.4 fl (7.0-11.0) 06/18/18 06:45 Gran % 81.0 % (50.0-68.0) H 06/17/18 09:00 Lymph % (Auto) 9.5 % (22.0-35.0) L 06/17/18 09:00 [place] % (Auto) 9.3 % (1.0-6.0) H 06/17/18 09:00 Eos % (Auto) 0.1 % (1.5-5.0) L 06/17/18 09:00 Baso % (Auto) 0.1 % (0.0-3.0) 06/17/18 09:00 Gran # 11.63 (1.4-6.5) H 06/17/18 09:00 Lymph # (Auto) 1.4 (1.2-3.4) 06/17/18 09:00 [place] # (Auto) 1.3 (0.1-0.6) H 06/17/18 09:00 Eos # (Auto) 0.0 (0.0-0.7) 06/17/18 09:00 Baso # (Auto) 0.02 K/mm3 (0.0-2.0) 06/17/18 09:00 Sodium 140 mmol/L (132-148) 06/18/18 06:45 Potassium 4.0 mmol/L (3.6-5.0) 06/18/18 06:45 Chloride 105 mmol/L (98-107) 06/18/18 06:45 Carbon Dioxide 27 mmol/L (21-33) 06/18/18 06:45 Anion Gap 13 (10-20) 06/18/18 06:45 BUN 13 mg/dL (7-21) 06/18/18 06:45 Creatinine 0.6 mg/dl (0.7-1.2) L 06/18/18 06:45 Est GFR ( Amer) > 60 06/18/18 06:45 Est GFR (Non-Af Amer) > 60 06/18/18 06:45 Random Glucose 114 mg/dL (70-110) H 06/18/18 06:45 Calcium 8.4 mg/dL (8.4-10.5) 06/18/18 06:45 Total Bilirubin 0.9 mg/dL (0.2-1.3) 06/17/18 09:00 AST 23 U/L (14-36) 06/17/18 09:00 ALT 25 U/L (7-56) 06/17/18 09:00 Alkaline Phosphatase 62 U/L (38-126) 06/17/18 09:00 Total Protein 8.2 g/dL (5.8-8.3) 06/17/18 09:00 Albumin 4.4 g/dL (3.0-4.8) 06/17/18 09:00 Globulin 3.8 gm/dL 06/17/18 09:00 Albumin/Globulin Ratio 1.2 (1.1-1.8) 06/17/18 09:00 Amylase 77 U/L (35-125) 06/17/18 09:00 Lipase 34 U/L (23-300) 06/17/18 09:00 Urine Color Yellow (YELLOW) 06/17/18 09:00 Urine Appearance Clear (CLEAR) 06/17/18 09:00 Urine pH 6.0 (4.7-8.0) 06/17/18 09:00 Ur Specific [place] 1.025 (1.005-1.035) 06/17/18 09:00 Urine Protein Trace mg/dL (<30 mg/dL) H 06/17/18 09:00 Urine Glucose (UA) Negative mg/dL (NEGATIVE) 06/17/18 09:00 Urine Ketones Negative mg/dL (NEGATIVE) 06/17/18 09:00 Urine Blood Negative (NEGATIVE) 06/17/18 09:00 Urine Nitrate Negative (NEGATIVE) 06/17/18 09:00 Urine Bilirubin Negative (NEGATIVE) 06/17/18 09:00 Urine Urobilinogen 2.0 E.U./dL (<1 E.U./dL) H 06/17/18 09:00 Ur Leukocyte Esterase Negative Emily/uL (NEGATIVE) 06/17/18 09:00 Urine RBC 0 - 2 /hpf (0-2) 06/17/18 09:00 Urine WBC 1 - 3 /hpf (0-6) 06/17/18 09:00 Ur Epithelial Cells 4 - 5 /hpf (0-5) 08/24/18 09:00 Urine Bacteria Many (NEG) 06/17/18 09:00 Urine Other Uyeast 06/17/18 09:00 Urine HCG, Qual Negative (NEGATIVE) 06/17/18 09:00
[2018-06-18] MEDS: levoFLOXacin 500 MG TAB PO SCH (09:06)
--- NOTE | 2018-06-21 17:08 | OP ---
Copied To: Brent Shaw MD Attending MD: Brent Shaw MD PROCEDURE DATE: 06/17/2018 PREOPERATIVE DIAGNOSES: 1. Acute appendicitis. 2. Incarcerated ventral hernia. POSTOPERATIVE DIAGNOSES: 1. Acute appendicitis. 2. Incarcerated ventral hernia. SURGERIES: 1. Laparoscopic appendectomy. 2. Repair of incarcerated ventral hernia. 3. Laparoscopic enterolysis. 4. Bilateral sonography-guided transverse abdominus muscle plain block anesthesia. SURGEON: Brent Shaw MD, PhD. ANESTHESIA: General endotracheal. ESTIMATED BLOOD LOSS: 5 mL. IV FLUIDS: 1 L of Ringer's lactate. DRAINS: None. COMPLICATIONS: None. HARDWARE: None. DISPOSITION: Stable, extubated to the Recovery Room. CLINICAL INFORMATION: Ms. ePdraza is a 33-year-old female who previously underwent a sleeve gastrectomy and came to the [facility] with a 24-hour history of nausea and vomiting as well as right lower quadrant and periumbilical abdominal pain. On examination, she had tenderness and guarding of the right lower quadrant and the periumbilical area. She had leukocytosis and a CT scan with p.o. and IV contrast showed that she has acute appendicitis. Also, on exam, she was noted to have a small infraumbilical ventral hernia likely from the previous surgery. INTRAOPERATIVE FINDINGS: The patient had several adhesions in the midline right above the umbilicus. She had a small incarcerated ventral hernia with preperitoneal and omental fat contents. She had an inflamed, enlarged appendix, partially covered with fibrinous exudate and adhered to the cecum and the terminal ileum in a retrocecal fashion and to the right lateral pelvic wall. She also had a small amount of cloudy fluid in the pelvis and the right paracolic gutter. DESCRIPTION OF THE SURGERY: The patient was brought into the operating room, placed on the operating table in the supine position. After appropriate time-out and smooth induction of general anesthesia, Venodyne boots were placed on both legs and prophylactic antibiotics were given. The entire abdomen was prepped and draped in the usual sterile fashion. The Becker catheter was not inserted since the patient had urinated less than an hour before the start time of the surgery. The infraumbilical area right over the small incarcerated ventral hernia was infiltrated with local anesthetic, which comprised of 0.5% Marcaine and 1% lidocaine with epinephrine in equal volumes. A vertical incision was performed in that area, was brought down to subcutaneous tissue using Bovie electrocautery. The ventral hernia was identified. Its contents were reduced to the peritoneal cavity and a 0 Vicryl stitch was placed on each side with end-to-side fashion and a Ivis trocar was inserted through the opening. The obturator was removed and the port was connected to the generating pneumoperitoneum up to 15 mmHg after the port was secured to the abdominal wall using 0 Vicryl stay sutures. The patient's position was changed the left side down exposing the right lower quadrant. A 10 mm 30-degree laparoscopic video camera was inserted and the abdomen was inspected. The appendix was partially concealed by the cecum and the terminal ileum and attached to the right lateral pelvic wall. It was covered partially by fibrinous exudate and appeared to be enlarged and inflamed. There was also small amount of cloudy fluid in the pelvis in the right paracolic gutter. There were also adhesions from the previous surgery along the midline and supraumbilical and the periumbilical area. Two more 5 mm ports were inserted in the lower abdomen, mainly in the suprapubic area and the left lower quadrant after infiltrating the skin with local anesthetic with a same local anesthetic and incising with 15 blade. The obturators were removed and the Endo grasper and a Harmonic scalpel were inserted through the 5-mm ports and directed towards the right lower quadrant. The appendix was freed from the attachments to the cecum, the terminal ileum and the omentum as well as the right pelvic wall and was retracted medially exposing the mesoappendix on its entire length. In a sequential fashion, the Harmonic scalpel was used to secure to seal the mesoappendix all the way to the base of the appendix. This was done without blood loss. Following that, the camera was switched to 5 mm 30-degree laparoscopic video camera. It was inserted through the left lower quadrant port. The appendix was grasped with Endo grasper inserted through the suprapubic port and the Endo KAITY 45 stapler was inserted through the infraumbilical port and fired across the base of the appendix. The specimen was placed in an Endo Bag and removed from the operating field. Copious amounts of 1 liter of warm normal saline were used to irrigate and aspirate the abdominal cavity fluids. There was no evidence of succus or bleeding from the appendiceal stump or the mesoappendix. The small ventral hernia defect was closed with interrupted 0 Vicryl stitches in a tension free fashion. The integrity of the fascial closure was checked by inserting a 5 mm 30-degree laparoscopic video camera through the right and left lower quadrant port. The supraumbilical midline adhesions were taken down with a Harmonic scalpel in a sequential fashion and without bleeding. The remaining two 5-mm ports were removed under direct laparoscopic visualization and there was no evidence of bleeding from the port sites. Those skin incisions were closed with 4-0 continuous subcuticular Monocryl stitch and Steri-Strips were applied. At the end of the surgery, the count of the instruments as well as the needles were correct x2. The patient tolerated the surgery well and was transferred and extubated in stable condition to the Recovery Room. Brent Shaw MD
== END 2018-06-18 12:16 | disposition home or self-care (01) | DRG 342 ==
LOC: ED 08:39 → ERH 10:31 → 5RNO 11:20
PROVIDERS: ADMIT Specialist; ATTEND Specialist
PROC: 0WQF4ZZ Repair Abdominal Wall, Percutaneous Endoscopic Approach (ICD-10-PCS; 2018-06-17)
PROC: 0DTJ4ZZ Resection of Appendix, Percutaneous Endoscopic Approach (ICD-10-PCS; principal; 2018-06-17 13:00)
DX: K35.80 Unspecified acute appendicitis (principal); K43.6 Other and unspecified ventral hernia with obstruction, without gangrene; N92.6 Irregular menstruation, unspecified; Z97.5 Presence of (intrauterine) contraceptive device; K66.0 Peritoneal adhesions (postprocedural) (postinfection)

== ENCOUNTER 2018-09-22 15:43 | Emergency (ER) | payer BC ==
[2018-09-22 16:25] VITALS: BMI 42.0
--- NOTE | 2018-09-22 16:45 | ED PDOC ---
Arrival/HPI <Jesse Paulson - Last Filed: 09/22/18 17:11> - General Historian: Patient - History of Present Illness Narrative History of Present Illness (Text): 09/22/18 16:44 Patient is a 33 year old female with past medical history of anemia, migraines who presents to the emergency department for headache. Patient states that for the past week or so she has been experiencing a constant headache that is diffuse in nature. She described it as her head being foggy. She has tried excedrin and tylenol at home with no relief. Admits to having sensitivity to light. Patient also reports experiencing fatigue and body aches. Patient admits to having midsternal chest pain for the past week. Pain is only present when moving. Denies any radiation. She denies any changes in vision, fevers, chills, dizziness, nausea/vomiting, cough, congestion, abdominal pain, urinary symptoms, changes in bowel habits. Allergies: NKDA Medications: Denies Medical History: Anemia, migraines Surgical History: Gastric sleeve, appendectomy Social History: Denies alcohol, tobacco, drug use Family History: Mother - HLD, Father - HTN, diabetes Time/Duration: > week Symptom Course: Unchanged Severity Level: 10, Mild <Billie Lamb - Last Filed: 09/22/18 19:58> - General Chief Complaint: Headache Time Seen by Provider: 09/22/18 16:44 Past Medical History - Provider Review Nursing Documentation Reviewed: Yes - Infectious Disease Hx of Infectious Diseases: None - Cardiac Hx Cardiac Disorders: No - Pulmonary Hx Respiratory Disorders: No - Neurological Hx Neurological Disorder: No - HEENT Hx HEENT Disorder: Yes (finger laceration 2017) - Renal Hx Renal Disorder: No - Endocrine/Metabolic Hx Endocrine Disorders: No - Hematological/Oncological Hx Blood Transfusions: No Hx Blood Transfusion Reaction: No - Integumentary Hx Dermatological Disorder: No - Musculoskeletal/Rheumatological Hx Falls: No - Gastrointestinal Hx Gastrointestinal Disorders: Yes (obese) Hx Gastroesophageal Reflux: Yes - Genitourinary/Gynecological Hx Genitourinary Disorders: Yes Hx Urinary Tract Infection: Yes Other/Comment: hx of multiple ovarian cysts "went away" stated pt - Psychiatric Hx Psychophysiologic Disorder: No Hx Substance Use: No - Surgical History Hx Appendectomy: Yes Other/Comment: GASTRIC SLEEVE - Anesthesia Hx Anesthesia Reactions: No Hx Malignant Hyperthermia: No <Billie Lamb - Last Filed: 09/22/18 19:58> Family/Social History - Physician Review Nursing Documentation Reviewed: Yes Family/Social History: Diabetes, Hypertension Smoking Status: Never Smoked Hx Alcohol Use: No Hx Substance Use: No Hx Substance Use Treatment: No <Billie Lamb - Last Filed: 09/22/18 19:58> Allergies/Home Meds <Jesse Paulson - Last Filed: 09/22/18 17:11> <Billie Lamb - Last Filed: 09/22/18 19:58> Allergies/Adverse Reactions: Allergies No Known Allergies Allergy (Verified 09/22/18 17:23) Review of Systems - Physician Review All systems were reviewed & negative as marked: Yes - Review of Systems Constitutional: Fatigue. absent: Fevers Eyes: Photophobia. absent: Vision Changes ENT: Normal. absent: Hearing Changes Respiratory: absent: SOB, Cough, Wheezing Cardiovascular: Chest Pain. absent: Palpitations, Calf Pain, Syncope Gastrointestinal: Appetite Changes. absent: Abdominal Pain, Constipation, Diarrhea, Nausea, Vomiting Genitourinary Female: absent: Dysuria, Frequency Musculoskeletal: Myalgias. absent: Back Pain Skin: absent: Rash Neurological: Headache. absent: Dizziness Endocrine: absent: Diaphoresis, Polyuria <Billie Lamb - Last Filed: 09/22/18 19:58> Physical Exam Vital Signs Temp Pulse Resp BP Pulse Ox 09/22/18 15:43 98.1 F 78 18 151/74 H 98 <Jesse Paulson - Last Filed: 09/22/18 17:11> Vital Signs Reviewed: Yes Vital Signs Temp Pulse Resp BP Pulse Ox 09/22/18 15:43 98.1 F 78 18 151/74 H 98 Temperature: Afebrile Blood Pressure: Hypertensive Pulse: Regular Respiratory Rate: Normal Appearance: Positive for: Non-Toxic Pain Distress: None Mental Status: Positive for: Alert and Oriented X 3 - Systems Exam Head: Present: Atraumatic, Normocephalic Pupils: Present: PERRL Extroacular Muscles: Present: EOMI Conjunctiva: Present: Normal Mouth: Present: Moist Mucous Membranes Pharnyx: Present: Normal Nose (Internal): Present: Normal Inspection Neck: Present: Normal Range of Motion Respiratory/Chest: Present: Clear to Auscultation, Good Air Exchange. No: Respiratory Distress, Accessory Muscle Use Cardiovascular: Present: Regular Rate and Rhythm, Normal S1, S2, Other (midsternal tenderness to palpation). No: Murmurs Abdomen: Present: Normal Bowel Sounds. No: Tenderness, Distention Lower Extremity: No: CALF TENDERNESS Skin: Present: Warm, Dry, Normal Color Psychiatric: Present: Alert, Oriented x 3, Normal Concentration <Billie Lamb - Last Filed: 09/22/18 19:58> Medical Decision Making ED Course and Treatment: 09/22/18 17:10 33 year old female presents to the Emergency department complaining of headache, fatigue and chest pain. In agreement with resident note which contains more details about the patient. Patient seen and evaluated with resident. Came up with plan and treatment together. - RAD Interpretation Radiology Orders: 09/22/18 16:43 CXR [CHEST PORTABLE] [RAD] Stat - Medication Orders Current Medication Orders: Discontinued Medications Ketorolac Tromethamine (Toradol) 30 mg IVP STAT STA Stop: 09/22/18 16:46 <Jesse Paulson - Last Filed: 09/22/18 17:11> ED Course and Treatment: 09/22/18 16:56 Patient seen and examined at bedside. Patient with headache, fatigue and chest pain. On exam, chest pain is reproducible on palpation. We will order EKG, CXR, CBC, CMP, Coags, urinalysis, troponin, Toradol 30mg IVP. 09/22/18 18:11 Patient still reports having a headache. Will order NS bolus, Reglan 10mg IVP and Tylenol 650mg PO x 1 09/22/18 19:39 Labs and imaging reviewed. Patient feeling better at this time. Will discharge patient home after fluid bolus is complete. - RAD Interpretation Narrative RAD Interpretations (Text): 09/22/18 17:42 CXR: No active disease Radiology Orders: 09/22/18 16:43 CXR [CHEST PORTABLE] [RAD] Stat [employer] Supervisor: Radiologist - EKG Interpretation EKG Interpretation (Text): 09/22/18 16:57 EKG: NSR, 73 bpm, no ST-T wave changes Interpreted by ED Physician: Yes Type: 12 lead EKG <Billie Lamb - Last Filed: 09/22/18 19:58> - PA / MILK TREATER / Resident Statement MD/ has reviewed & agrees with the documentation as recorded. MD/DO has examined the patient and agrees with the treatment plan. - Scribe Statement The provider has reviewed the documentation as recorded by the Jamesibdiamond Aguilera. All medical record entries made by the Sasha were at my direction and pe rsonally dictated by me. I have reviewed the chart and agree that the record accurately reflects my personal performance of the history, physical exam, medical decision making, and the department course for this patient. I have also personally directed, reviewed, and agree with the discharge instructions and disposition. <Jesse Paulson - Last Filed: 09/22/18 17:11> Disposition/Present on Arrival <Jesse Paulson - Last Filed: 09/22/18 17:11> - Present on Arrival Any Indicators Present on Arrival: No History of DVT/PE: No History of Uncontrolled Diabetes: No Urinary Catheter: No History of Decub. Ulcer: No History Surgical Site Infection Following: None - Disposition Have Diagnosis and Disposition been Completed?: Yes Disposition Time: 19:45 Patient Plan: Discharge <Billie Lamb - Last Filed: 09/22/18 19:58> - Disposition Diagnosis: Migraine, Chest pain, musculoskeletal Disposition: HOME/ ROUTINE Patient Problems: Current Active Problems Problem Status Onset Chest pain, musculoskeletal Acute Migraine Acute Condition: GOOD Discharge Instructions (ExitCare): Migraine Headaches in Adults, Chest Pain (ED) Additional Instructions: - Increase PO hydration - Follow up with PMD outpatient within 2-3 days - If symptoms worsen, please return to the emergency department Prescriptions: Acetaminophen/Butalbital/Caf [Fioricet] 1 tab PO Q6H PRN #12 tab PRN Reason: Headache Forms: [employer] (Mexican)
--- NOTE | 2018-09-22 17:03 | RAD ---
Date of service: 09/22/2018 HISTORY: chest pain COMPARISON: No prior. FINDINGS: LUNGS: No active pulmonary disease. PLEURA: No significant pleural effusion identified, no pneumothorax apparent. CARDIOVASCULAR: No aortic atherosclerotic calcification present. Normal cardiac size. No pulmonary vascular congestion. OSSEOUS STRUCTURES: No significant abnormalities. VISUALIZED UPPER ABDOMEN: Normal. OTHER FINDINGS: None. IMPRESSION: No active disease.
[2018-09-22 17:22] LABS: BASO # 0.03 K/mm3 (0.0-2.0); BASO % 0.4 % (0.0-3.0); EOS # 0.1 (0.0-0.7); EOS % 1.8 % (1.5-5.0); GRAN # 4.46 (1.4-6.5); HEMOGLOBIN 12.2 g/dL (12.0-16.0); LYMPH % 27.6 % (22.0-35.0); MEAN CELL VOLUME 84.9 fl (80.0-105.0); MEAN CORPUSCULAR HEMOGLOBIN 27.2 pg (25.0-35.0); MEAN PLATELET VOLUME 11.1 fl (7.0-11.0); MONO # 0.7 (0.1-0.6); MONO % 9.2 % (1.0-6.0); RBC 4.49 10^6/uL (3.5-6.1); RED CELL DISTRIBUTION WIDTH 13.9 % (11.5-14.5); WHITE BLOOD COUNT 7.3 10^3/uL (4.5-11.0)
[2018-09-22 17:24] LABS: INR 1.11; PARTIAL THROMBOPLASTIN TIME 32.8 Seconds (25.1-36.5); PROTHROMBIN TIME 12.7 SECONDS (9.4-12.5)
[2018-09-22 17:28] LABS: PH,URINE 6.5 (4.7-8.0); URINE BILIRUBIN NEGATIVE (NEGATIVE); URINE BLOOD NEGATIVE (NEGATIVE); URINE GLUCOSE (UA) NEGATIVE (NEGATIVE); URINE LEUKOCYTE ESTERASE NEGATIVE Leu/uL (NEGATIVE); URINE PROTEIN NEGATIVE mg/dL (<30 mg/dL)
[2018-09-22 17:30] LABS: URINE APPEARANCE CLEAR (CLEAR); URINE COLOR YELLOW (YELLOW)
[2018-09-22 17:31] LABS: ALB/GLOB RATIO 1.1 (1.1-1.8); ALBUMIN 4.2 g/dL (3.0-4.8); BLOOD UREA NITROGEN 17 mg/dL (7-21); CALCIUM 8.8 mg/dL (8.4-10.5); GFR NON-AFRICAN AMERICAN > 60
[2018-09-22 17:39] LABS: ALT/SGPT 26 U/L (7-56); AST/SGOT 46 U/L (14-36)
[2018-09-22 17:42] LABS: TROPONIN I 0.02 ng/mL
[2018-09-22] MEDS ORDERED: Sodium Chloride 0.9% 1,000 ML IV STA (18:11)
[2018-09-22 19:57] VITALS: BP 142/66; PULSE 66; RESP 17; TEMP 98; O2SAT 99
--- NOTE | 2018-09-23 20:00 | CARD ---
APPROVED REPORT Date of service: 09/22/2018 EKG Measurement Heart [id number] CO 140P24 [id number] <Conclusion> Normal sinus rhythm Normal ECG
== END 2018-09-22 19:59 | disposition home or self-care (01) ==
LOC: ED 15:43
DX: G43.909 Migraine, unspecified, not intractable, without status migrainosus (principal); R07.89 Other chest pain; Z83.3 Family history of diabetes mellitus; Z82.49 Family history of ischemic heart disease and other diseases of the circulatory system
CPT/HCPCS: 71045; 80053; 81003; 84484; 85025; 85610; 85730; 93005; 96361; 96374; 96375; 99285; J1885; J2765; J7030